=== PATIENT | female | born 1955 | race Caucasian/White ===

== ENCOUNTER → 2016-09-01 | Outpatient (CLI) | payer OTHER ==
[~2016-09-01] MED LIST: ASCA500 PO; B-COCAP2 PO; BUPR150T7 PO; CALC600T14 PO; ERYTOIN6 OPR; MULTTAB58 PO; VITA400C3 PO; lysine PO
== END | disposition home or self-care (01) ==
LOC: C.LABPVFM 10:39
PROVIDERS: ATTEND Nurse Practitioner
DX: R20.2 Paresthesia of skin (principal); R93.7 Abnormal findings on diagnostic imaging of other parts of musculoskeletal system; R53.83 Other fatigue

== ENCOUNTER → 2016-09-11 | Outpatient (CLI) | payer OTHER ==
[~2016-09-11] MED LIST changes: +GADAVIST IV PRN
--- NOTE | 2016-09-11 17:29 | DIAGNOSTIC IMAGING REPORT ---
MRI OF THE BRAIN WITHOUT AND WITH IV CONTRAST CLINICAL HISTORY: History of traumatic brain injury and subarachnoid hemorrhage. Headache, dizziness. COMPARISON STUDY: No previous studies for comparison. TECHNIQUE: MRI of the brain was performed from the vertex to the skull base utilizing various T1 and T2 weighted sequences. Following the IV administration of 8 mL of Gadavist contrast, additional enhanced images were obtained. FINDINGS: Sagittal T1, axial diffusion, proton density and T2 weighted axial, coronal FLAIR, and pre and post axial T1-weighted images were acquired. These were supplemented with post gadolinium coronal T1 weighted images. No intra or extra-axial mass lesions are visualized. Axial diffusion-weighted images reveal no evidence of acute or subacute infarction. There is no evidence of ventricular dilatation. Proton density T2-weighted and FLAIR images reveal a few punctate foci of increased T2 signal, likely on a small vessel basis. There are no abnormal flow voids. There is a nonspecific 3 mm focus of enhancement within the left insular cortex. There are no corresponding signal abnormalities on proton density, T2-weighted, FLAIR, or gradient echo sequences. This finding is of questionable clinical significance. IMPRESSION: 1. Nonspecific 3 mm focus of enhancement within the left insular cortex 2. No evidence of acute or subacute infarction 3. No evidence of hydrocephalus 4. No current evidence of hemorrhage Electronically signed by: Jairo Souza M.D. 09/11/2016 5:27 PM Dictated Date/Time: 09/11/2016 5:22 PM
== END | disposition home or self-care (01) ==
LOC: C.MRI 16:21
PROVIDERS: ATTEND Nurse Practitioner
DX: I60.9 Nontraumatic subarachnoid hemorrhage, unspecified (principal); R26.9 Unspecified abnormalities of gait and mobility; R93.7 Abnormal findings on diagnostic imaging of other parts of musculoskeletal system; S06.9X9A Unspecified intracranial injury with loss of consciousness of unspecified duration, initial encounter; X58.XXXA Exposure to other specified factors, initial encounter

== ENCOUNTER → 2017-07-15 | Outpatient (CLI) | payer OTHER ==
[~2017-07-15] MED LIST changes: -GADAVIST IV PRN
[2017-07-15 09:54] LABS: BLOOD UREA NITROGEN 12 mg/dl (7-18); BUN/CREATININE RATIO 13.6 (10-20); CALCIUM 8.8 mg/dl (8.5-10.1); CARBON DIOXIDE 31 mmol/L (21-32); CHLORIDE 105 mmol/L (98-107); CHOLESTEROL 173 mg/dl (0-200); CREATININE 0.85 mg/dl (0.60-1.20); GLUCOSE 94 mg/dl (70-99); POTASSIUM 4.1 mmol/L (3.5-5.1); SODIUM 142 mmol/L (136-145); TRIGLYCERIDES 111 mg/dl (0-150); VERY LOW DENSITY LIPOPROT CALC 22 mg/dl
[2017-07-15 09:58] LABS: CHOLESTEROL/HDL RATIO 2.7; HDL CHOLESTEROL 64 mg/dl; LDL CHOLESTEROL CALCULATED 87 mg/dl
== END | disposition home or self-care (01) ==
LOC: C.LAB1850 07:57
PROVIDERS: ATTEND Nurse Practitioner
DX: Z13.1 Encounter for screening for diabetes mellitus (principal); Z13.220 Encounter for screening for lipoid disorders

== ENCOUNTER → 2017-08-13 | Outpatient (CLI) | payer OTHER ==
[2017-08-13 13:08] LABS: HEMATOCRIT 39.7 % (37-47); MEAN CORPUSCULAR HEMOGLOBIN 31.9 pg (25-34); MEAN CORPUSCULAR HGB CONC 34.3 g/dl (32-36); MEAN PLATELET VOLUME 9.6 fL (7.4-10.4); PLATELET COUNT 307 K/uL (130-400); RED BLOOD COUNT 4.27 M/uL (4.2-5.4); WHITE BLOOD COUNT 6.06 K/uL (4.8-10.8)
[2017-08-13 13:14] LABS: URINE APPEARANCE CLEAR (CLEAR); URINE BILIRUBIN NEG (NEG); URINE COLOR YELLOW; URINE EPITHELIAL CELL AUTO 20-30 /lpf (0-5); URINE NITRITE NEG (NEG); URINE SPECIFIC GRAVITY 1.021 (1.000-1.030); UROBILINOGEN NEG (NEG)
[2017-08-13 13:22] LABS: MANUAL MICROSCOPIC REQUIRED? NO; REVIEW REQ? NO
[2017-08-13 13:47] LABS: BLOOD UREA NITROGEN 14 mg/dl (7-18); BUN/CREATININE RATIO 15.5 (10-20); CALCIUM 8.7 mg/dl (8.5-10.1); CARBON DIOXIDE 28 mmol/L (21-32); CHLORIDE 105 mmol/L (98-107); CREATININE 0.93 mg/dl (0.60-1.20); GLUCOSE 88 mg/dl (70-99); POTASSIUM 3.9 mmol/L (3.5-5.1); SODIUM 137 mmol/L (136-145)
[2017-08-13 14:01] LABS: THYROID STIMULATING HORMONE 0.767 uIu/ml (0.300-4.500)
== END | disposition home or self-care (01) ==
LOC: C.LABPVFM 10:44
PROVIDERS: ATTEND Family Medicine
DX: H81.10 Benign paroxysmal vertigo, unspecified ear (principal)